=== PATIENT | female | born 1950 | race Caucasian/White ===

== ENCOUNTER → 2017-04-06 | Outpatient (CLI) | payer MEDICARE, OTHER ==
[~2017-04-06] MED LIST: OMEP20CA3 PO; VITA200016 PO; XALA0.007 OU
--- NOTE | 2017-04-06 17:59 | REP ---
Chest x-ray: Two views: History: Spur removal on foot. Comparison chest x-ray: 06/09/2005. Findings: The lungs are symmetrically aerated and free of infiltrate. The heart is near the upper range of normal with cardiothoracic ratio 13.2 cm over 27.7 cm. Pulmonary vasculature is not increased. Pleural angles are sharp. There are degenerative changes in the thoracic spine. No significant bony abnormality is seen. Impression: The heart is near the upper range of normal in size. Otherwise no acute disease seen. Signed by Ronen Overton MD 04/06/2017 07:39 P
[2017-04-06 18:05] LABS: CALCIUM LEVEL 8.6 MG/DL (8.8-10.2); CREATININE FOR GFR 1.13 MG/DL (0.55-1.02); GLOMERULAR FILTRATION RATE 51.4 (>45)
[2017-04-06 18:12] LABS: BASO % 0.5 % (0.0-1.0); EOS # 0.1 K/mm3 (0.0-0.50); EOS % 1.9 % (0.0-3.0); LARGE UNSTAINED CELL # 0.1 K/mm3 (0.0-0.4); LARGE UNSTAINED CELL % 1.4 % (0.0-4.0); LYMPH # 2.8 K/mm3 (1.5-4.5); LYMPH % 39.9 % (24.0-44.0); MEAN CORPUSCULAR HGB CONC 33.9 g/dl (32.0-36.5); MEAN CORPUSCULAR VOLUME 88.7 fl (80.0-96.0); MONO # 0.4 K/mm3 (0.0-0.8); MONO % 5.6 % (0.0-5.0); NEUTROPHILS # 3.4 K/mm3 (1.8-7.7); NEUTROPHILS % 50.6 % (36.0-66.0); PLATELET COUNT, AUTOMATED 227 k/mm3 (150-450); RED CELL DISTRIBUTION WIDTH 12.9 % (11.5-14.5); WHITE BLOOD COUNT 6.6 K/mm3 (4.0-10.0)
[2017-04-06 18:16] LABS: POTASSIUM SERUM 5.2 MEQ/L (3.5-5.1)
== END ==
LOC: M SMT 15:10
PROVIDERS: ATTEND Podiatrist
DX: Z01.818 Encounter for other preprocedural examination (principal); M25.7 Osteophyte

== ENCOUNTER 2017-04-12 06:00 | Day surgery (SDC) | payer MEDICARE, OTHER ==
[~2017-04-12] VITALS: Ht 162.6 cm; Wt 90.3 kg
[2017-04-12] MEDS ORDERED: LIDOCAINE 1% MDV 20ML VIAL SC ONE (06:30)
[2017-04-12] MEDS ORDERED: LR 1,000 ML IV ONE (06:30)
[2017-04-12] MEDS ORDERED: fentaNYL 100 MCG/2 ML INJECTION (J3010) As Ordered ONE (06:37)
[2017-04-12] MEDS ORDERED: KETAMINE HCL 200 MG/20 ML VIAL As Ordered ONE (06:37)
[2017-04-12] MEDS ORDERED: MIDAZOLAM INJ 2 MG/2 ML VIAL (J2250) As Ordered ONE (06:37)
[2017-04-12] MEDS ORDERED: ONDANSETRON 4MG/2ML VIAL (J2405) As Ordered ONE (06:38)
[2017-04-12] MEDS ORDERED: LIDOCAINE 2% INJ 100 MG/5 ML SDV (FOR ANES.) As Ordered ONE (06:38)
[2017-04-12] MEDS ORDERED: PROPOFOL 200 MG/20 ML VIAL As Ordered ONE (06:38)
[2017-04-12] MEDS ORDERED: dexameTHASONE 4 MG/ML 1ML VIAL (J1100) As Ordered ONE ×2 (06:38→07:06)
[2017-04-12] MEDS ORDERED: KETOROLAC 60 MG/2 ML VIAL (J1885) As Ordered ONE (06:38)
[2017-04-12] MEDS ORDERED: LIDOCAINE 2% MDV 20 ML VIAL As Ordered ONE (07:06)
[2017-04-12] MEDS ORDERED: ROPIvacaine 0.5% 30 ML INJECTION (J2795) As Ordered ONE (07:06)
[2017-04-12] MEDS ORDERED: NEOSPORIN GU IRRIG 20 ML VIAL As Ordered ONE (07:07)
[2017-04-12] MEDS ORDERED: BACITRACIN PWD 50,000 UNITS VIAL As Ordered ONE (07:07)
[2017-04-12] MEDS ORDERED: BUPIVACAINE HCL 0.5% 30 ML VIAL As Ordered ONE (07:07)
[2017-04-12 09:35] VITALS: BP 162/75
--- NOTE | 2017-04-12 09:57 | REP ---
LEFT FOOT SERIES: Three views. HISTORY: Postop. FINDINGS: Portably obtained three-view left foot series is presented. There is a bulky overlying dressing. Some subcutaneous emphysema is seen in the forefoot. There is a shave osteotomy performed in the distal end of the first metatarsal. No other abnormality. Signed by Ronen Overton MD 04/12/2017 01:58 P
--- NOTE | 2017-04-13 17:22 | RO ---
DATE OF PROCEDURE: 04/12/2017 PREOPERATIVE DIAGNOSIS: Hallux limitus deformity left foot and neuroma third interspace left foot. POSTPROCEDURE DIAGNOSIS: Hallux limitus deformity left foot and neuroma third interspace left foot. PROCEDURE: 1. Cheilectomy 1st metatarsal phalangeal joint left foot. 2. Excision of neuroma 3rd intermetatarsal space left foot. SURGEON: TAMI Whyte ASSISTANT: None. ANESTHESIA: Local monitored anesthesia care (MAC). IRRIGATION: Dilute bacitracin, neomycin and polymyxin B solution. HEMOSTASIS: Ankle pneumatic tourniquet. HARDWARE UTILIZED: None. DESCRIPTION OF OPERATION: On 04/12/2017 this 66-year-old white female was taken from her hospital room to the operating room and placed on the operating room table in supine position. Following the induction of IV sedation, local and regional anesthesia, the left lower extremity was prepped and draped in the usual aseptic manner. Attention was directed to the patient's left foot and the following procedure was performed: CHEILECTOMY 1ST METATARSAL PHALANGEAL JOINT LEFT FOOT: Attention was directed to the patient's left foot where there was noted to be a hallux limitus deformity. At this time a 5 cm incision was placed over the first metatarsal phalangeal joint medial to the extensor tendon. The incision was deepened through the subcutaneous tissue and coursing venous tributaries were identified, underscored, clamped, cut, ligated, and electrocoagulated as necessary. A linear capsulotomy was then performed in the same plane as the original skin incision. The capsular and periosteal structures were then dissected free in one continuous layer dorsally, medially and laterally, thus creating a capsular periosteal type envelope. This delivered into view the hypertrophied medial eminence of the 1st metatarsal, which was osteotomized from dorsal to proximal, through and through. Approximately the dorsal 30% of the articular cartilage was denuded in a small central lateral aspect measuring 4 mm. The dorsal area could be completely osteotomized and this was done with a power saw encompassing the dorsal 30%. A small remaining 3 mm x 4 mm defect was present. This was drilled with a Kristan wire to promote fibrocartilaginous ingrowth. The dorsal 20% of the cartilage was also denuded. This was then osteotomized with a sagittal saw from distal to proximal and this was extirpated from the wound. Utilizing a handheld rasp, the area was rasped to a smooth contour. The wound was flushed with copious amounts of dilute bacitracin, neomycin and polymyxin B solution. The capsular structures were coapted and maintained utilizing #2-0 Monocryl in a simple interrupted type fashion. Subcutaneous tissues were coapted and maintained using #4-0 Monocryl in a simple interrupted type fashion. The skin incision was coapted and maintained using #5-0 Monocryl in a continuous subcuticular type fashion. This was additionally reinforced with Steri-Strips. Attention was then directed into the 3rd intermetatarsal space where the following procedure was performed: EXCISION OF NEUROMA 3RD INTERMETATARSAL SPACE LEFT FOOT: Attention was directed in the 3rd interspace where a 3 cm incision was placed between the 3rd and 4th metatarsals ending at the toe sulcus. This was then deepened through the subcutaneous tissues and all coursing venous tributaries were identified, underscored, clamped, cut, ligated and electrocoagulated as necessary. Dissection was then carried down to the level of the deep tranverse intermetatarsal ligament which was transected. A large neuroma was visualized. This was traced into its common digital branches and transected distally and then traced in a proximal direction through the distal third of the 3rd metatarsal where the nerve was transected and the neuroma was removed. The wound was flushed with copious dilute bacitracin, neomycin and polymyxin B solution. Closure was then obtained with #4-0 Monocryl in a simple interrupted fashion in the subcutaneous level and the skin was coapted and maintained utilizing #5-0 Monocryl in a continuous subcuticular type fashion and this was additionally reinforced with Steri-Strips. Following the completion of the surgical procedure, 4 mg of dexamethasone sodium phosphate was instilled proximally into the surgical site. Attention was directed towards bandaging where a sterile compressive bandage was applied consisting of Adaptic, 4x4s, 4x4 splints, Arron, Kerlix, and Coban. The ankle pneumatic tourniquet was rapidly deflated and instantaneous capillary filling time was noted in digits 1-5 of the patient's left foot. The patient having apparently tolerated the surgical procedure well was taken from the OR to the recovery room with vital signs stable. Patient afebrile for further monitoring by the anesthesia department. Surgical specimens were sent to pathology for gross and microscopic examination.
== END 2017-04-12 10:01 | disposition home or self-care (01) ==
LOC: M SDC 06:00
PROVIDERS: ATTEND Podiatrist
DX: M20.22 Hallux rigidus, left foot (principal); G57.82 Other specified mononeuropathies of left lower limb; M79.672 Pain in left foot; M25.775 Osteophyte, left foot; K21.9 Gastro-esophageal reflux disease without esophagitis; H40.9 Unspecified glaucoma; M19.90 Unspecified osteoarthritis, unspecified site; Z79.899 Other long term (current) drug therapy
CPT/HCPCS: 28080; 28289; 73630; 88300; 88304; J0690; J1100; J1885; J2250; J2405; J3010

== ENCOUNTER → 2017-06-11 | Outpatient (CLI) | payer MEDICARE, OTHER ==
--- NOTE | 2017-06-11 09:35 | REP ---
RIGHT HAND SERIES: Four views. HISTORY: Pain in the right hand. FINDINGS: Four views right hand show overall normal mineralization. There are some mild osteoarthritic changes at the navicular multangular articulation as well as at the 1st MCP and 1st IP joints and some spurring is seen at the DIP joints of all four fingers. There is an old ununited chip fracture of the distal tuft of the ring finger. There is old post-traumatic deformity at the proximal phalanx of the small finger. IMPRESSION: Osteoarthritic changes. No acute bony abnormality. Signed by Ronen Overton MD 06/11/2017 12:58 P
[2017-06-11 12:03] LABS: BASO % 0.6 % (0.0-1.0); EOS # 0.1 10^3/uL (0.0-0.50); EOS % 2.5 % (0.0-3.0); IMMATURE GRANULOCYTE % 0.2 % (0-0); LYMPH # 2.1 10^3/uL (1.5-4.5); LYMPH % 40.3 % (24.0-44.0); MEAN CORPUSCULAR HEMOGLOBIN 29.6 pg (27.0-33.0); MEAN CORPUSCULAR HGB CONC 32.8 g/dl (32.0-36.5); MEAN CORPUSCULAR VOLUME 90.1 fl (80.0-96.0); MONO # 0.5 10^3/uL (0.0-0.8); MONO % 9.7 % (0.0-5.0); NEUTROPHILS # 2.5 10^3/uL (1.8-7.7); NEUTROPHILS % 46.7 % (36.0-66.0); PLATELET COUNT, AUTOMATED 261 10^3/uL (150-450); RED CELL DISTRIBUTION WIDTH 12.7 % (11.5-14.5); WHITE BLOOD COUNT 5.2 10^3/uL (4.0-10.0)
[2017-06-11 12:21] LABS: ALBUMIN 3.8 GM/DL (3.2-5.2); ALBUMIN/GLOBULIN RATIO 1.09 (1.00-1.93); BILIRUBIN,TOTAL 0.5 MG/DL (0.2-1.0); CALCIUM LEVEL 9.1 MG/DL (8.8-10.2); CREATININE FOR GFR 1.05 MG/DL (0.55-1.02); FREE T4 1.03 NG/DL (0.76-1.46); POTASSIUM SERUM 4.9 MEQ/L (3.5-5.1); TOTAL PROTEIN 7.3 GM/DL (6.4-8.2)
== END ==
LOC: M SMT 08:43
PROVIDERS: ATTEND Family Medicine
DX: K21.9 Gastro-esophageal reflux disease without esophagitis (principal); E78.00 Pure hypercholesterolemia, unspecified; R94.6 Abnormal results of thyroid function studies; E55.9 Vitamin D deficiency, unspecified; M25.541 Pain in joints of right hand

== ENCOUNTER → 2018-06-25 | Outpatient (CLI) | payer MEDICARE, OTHER ==
[2018-06-25 13:57] LABS: BASO % 0.8 % (0.0-1.0); EOS # 0.1 10^3/uL (0.0-0.50); EOS % 2.8 % (0.0-3.0); HEMATOCRIT 39.9 % (36.0-47.0); HEMOGLOBIN 12.9 g/dl (12.0-15.5); IMMATURE GRANULOCYTE % 0.2 % (0-3.0); LYMPH % 40.4 % (24.0-44.0); MEAN CORPUSCULAR HEMOGLOBIN 29.2 pg (27.0-33.0); MEAN CORPUSCULAR HGB CONC 32.3 g/dl (32.0-36.5); MEAN CORPUSCULAR VOLUME 90.3 fl (80.0-96.0); MONO # 0.5 10^3/uL (0.0-0.8); MONO % 9.1 % (0.0-5.0); NEUTROPHILS # 2.3 10^3/uL (1.8-7.7); NEUTROPHILS % 46.7 % (36.0-66.0); PLATELET COUNT, AUTOMATED 253 10^3/uL (150-450); RED BLOOD COUNT 4.42 10^6/uL (4.00-5.40); WHITE BLOOD COUNT 4.9 10^3/uL (4.0-10.0)
[2018-06-25 14:26] LABS: ALBUMIN 3.7 GM/DL (3.2-5.2); ALBUMIN/GLOBULIN RATIO 1.16 (1.00-1.93); ALKALINE PHOSPHATASE 76 U/L (45-117); ALT/SGPT 25 U/L (12-78); ANION GAP 7 MEQ/L (8-16); AST/SGOT 15 U/L (7-37); BILIRUBIN,TOTAL 0.4 MG/DL (0.2-1.0); BLOOD UREA NITROGEN 17 MG/DL (7-18); CALCIUM LEVEL 8.9 MG/DL (8.8-10.2); CARBON DIOXIDE LEVEL 30 MEQ/L (21-32); CHLORIDE LEVEL 107 MEQ/L (98-107); CHOLESTEROL LEVEL 192 MG/DL (<200); CHOLESTEROL RISK RATIO 3.764 (<5); CREATININE FOR GFR 1.03 MG/DL (0.55-1.30); GLOMERULAR FILTRATION RATE 57.1 (>45); GLUCOSE, FASTING 93 MG/DL (70-100); HDL CHOLESTEROL 51 MG/DL (>40); LDL CHOLESTEROL 116 MG/DL (<100); NON-HDL-C 141 MG/DL; POTASSIUM SERUM 5.1 MEQ/L (3.5-5.1); SODIUM LEVEL 144 MEQ/L (136-145); THYROID STIMULATING HORMONE 0.731 uIU/ML (0.358-3.740); TOTAL PROTEIN 6.9 GM/DL (6.4-8.2); TRIGLYCERIDES LEVEL 124 MG/DL (<150)
== END ==
LOC: M SMT 08:08
DX: K21.9 Gastro-esophageal reflux disease without esophagitis (principal); E78.00 Pure hypercholesterolemia, unspecified
CPT/HCPCS: 84443

== ENCOUNTER → 2018-07-16 | Outpatient (CLI) | payer MEDICARE, OTHER | LOC: M WUC 11:49 | DX: S80.11XA Contusion of right lower leg, initial encounter (principal); X58.XXXA Exposure to other specified factors, initial encounter; Y92.9 Unspecified place or not applicable; Y93.9 Activity, unspecified; Y99.9 Unspecified external cause status | CPT/HCPCS: 73590 ==

== ENCOUNTER → 2019-06-19 | Outpatient (CLI) | payer MEDICARE, OTHER ==
[~2019-06-19] MED LIST changes: -OMEP20CA3 PO; +OMEP20CA4 PO
[2019-06-19 13:33] LABS: ALBUMIN 3.4 GM/DL (3.2-5.2); BILIRUBIN,TOTAL 0.5 MG/DL (0.2-1.0); CALCIUM LEVEL 8.5 MG/DL (8.8-10.2); CHOLESTEROL RISK RATIO 3.634 (<5); CREATININE FOR GFR 1.14 MG/DL (0.55-1.30); GLOMERULAR FILTRATION RATE 50.6 (>45); POTASSIUM SERUM 4.2 MEQ/L (3.5-5.1); THYROID STIMULATING HORMONE 0.59 uIU/ML (0.358-3.740); TOTAL PROTEIN 6.8 GM/DL (6.4-8.2)
[2019-06-19 13:35] LABS: TOTAL 25(OH) VITAMIN D 26.1 NG/ML (30.0-100.0)
[2019-06-19 13:37] LABS: BASO % 0.7 % (0.0-1.0); EOS # 0.1 10^3/uL (0.0-0.5); EOS % 2.4 % (0.0-3.0); HEMATOCRIT 41.4 % (36.0-47.0); HEMOGLOBIN 13.2 g/dl (12.0-15.5); LYMPH # 1.7 10^3/uL (1.5-5.0); LYMPH % 40.3 % (24.0-44.0); MEAN CORPUSCULAR HEMOGLOBIN 29.2 pg (27.0-33.0); MEAN CORPUSCULAR HGB CONC 31.9 g/dl (32.0-36.5); MEAN CORPUSCULAR VOLUME 91.6 fl (80.0-96.0); MONO # 0.4 10^3/uL (0.0-0.8); MONO % 10.6 % (0.0-5.0); NEUTROPHILS # 1.9 10^3/uL (1.5-8.5); NEUTROPHILS % 45.8 % (36.0-66.0); PLATELET COUNT, AUTOMATED 249 10^3/uL (150-450); RED BLOOD COUNT 4.52 10^6/uL (4.00-5.40); WHITE BLOOD COUNT 4.1 10^3/uL (4.0-10.0)
[2019-06-21 00:11] LABS: Lyme Disease IgG/IgM Antibodie <0.91 ISR (0.00-0.90); Lyme Disease IgM Ab Quantitati <0.80 index (0.00-0.79)
== END ==
LOC: M SMT 09:26
PROVIDERS: ATTEND Family Medicine
DX: K21.9 Gastro-esophageal reflux disease without esophagitis (principal); E78.00 Pure hypercholesterolemia, unspecified; R53.83 Other fatigue; M25.50 Pain in unspecified joint

== ENCOUNTER 2021-01-10 03:42 | Emergency (ER) | payer MEDICARE, OTHER ==
[~2021-01-10] VITALS: Ht 162.6 cm; Wt 96.0 kg
[~2021-01-10 03:42] MED LIST changes: +OMEP1CAP73 PO; -OMEP20CA4 PO
[2021-01-10 04:53] LABS: BASO % 0.5 % (0.0-1.0); EOS % 0.3 % (0.0-3.0); HEMATOCRIT 38.3 % (36.0-47.0); HEMOGLOBIN 12.5 g/dl (12.0-15.5); LYMPH # 0.8 10^3/uL (1.5-5.0); LYMPH % 12.1 % (24.0-44.0); MEAN CORPUSCULAR HEMOGLOBIN 29.6 pg (27.0-33.0); MEAN CORPUSCULAR HGB CONC 32.6 g/dl (32.0-36.5); MEAN CORPUSCULAR VOLUME 90.5 fl (80.0-96.0); MONO # 0.2 10^3/uL (0.0-0.8); MONO % 3.5 % (2.0-8.0); NEUTROPHILS # 5.2 10^3/uL (1.5-8.5); NEUTROPHILS % 83.3 % (36.0-66.0); PLATELET COUNT, AUTOMATED 241 10^3/uL (150-450); RED BLOOD COUNT 4.23 10^6/uL (4.00-5.40); WHITE BLOOD COUNT 6.3 10^3/uL (4.0-10.0)
[2021-01-10 05:26] LABS: ALBUMIN 3.6 GM/DL (3.2-5.2); ALT/SGPT 23 U/L (12-78); BILIRUBIN,DIRECT 0.1 MG/DL (0.0-0.2); BILIRUBIN,TOTAL 0.4 MG/DL (0.2-1.0); BLOOD UREA NITROGEN 17 MG/DL (7-18); CALCIUM LEVEL 9.7 MG/DL (8.8-10.2); CARBON DIOXIDE LEVEL 26 MEQ/L (21-32); CHLORIDE LEVEL 109 MEQ/L (98-107); CK-MB VALUE MASS 1.5 NG/ML (<3.6); CPK CREATINE PHOSPHOKINASE 120 U/L (26-192); CREATININE FOR GFR 1.03 MG/DL (0.55-1.30); GLOMERULAR FILTRATION RATE 56.6 (>45); GLUCOSE, FASTING 136 MG/DL (70-100); LIPASE 84 U/L (73-393); MB/CK RELATIVE INDEX 1.25 (< OR =4); POTASSIUM SERUM 4.1 MEQ/L (3.5-5.1); SODIUM LEVEL 142 MEQ/L (136-145); TOTAL PROTEIN 7.2 GM/DL (6.4-8.2); TROPONIN I < 0.02 NG/ML (< 0.10)
[2021-01-10] MEDS ORDERED: FAMOTIDINE INJ 20MG/2ML VIAL (S0028 PER 1) IVP ONE (05:30)
[2021-01-10] MEDS ORDERED: ONDANSETRON 4MG/2ML VIAL IV ONE (05:30)
[2021-01-10] MEDS ORDERED: NS 1,000 ML IV ONE (05:30)
--- NOTE | 2021-01-10 06:12 | REPVR ---
PROCEDURE INFORMATION: Exam: XR Complete Acute Abdomen Series Exam date and time: 01/10/2021 5:15 AM Age: 70 years old Clinical indication: Abdominal pain; Acute TECHNIQUE: Imaging protocol: XR complete acute abdomen series, including 2 or more views of the abdomen and a single view chest. COMPARISON: CR CHEST 2 VIEWS 04/06/2017 3:21 PM FINDINGS: Lungs: No consolidation. A small area of subsegmental atelectasis is seen in the lateral left lower lobe, only. Pleural spaces: Normal. No pleural effusions. No pneumothorax. Heart/Mediastinum: Normal. No cardiomegaly. Gastrointestinal tract: Normal. No bowel dilation. Intraperitoneal space: Normal. No free air below the diaphragm on the upright radiograph. Bones/joints: Normal. No acute fracture. Soft tissues: Normal. IMPRESSION: No major acute findings. A small area of subsegmental atelectasis is seen in the lateral left lower lobe, only. Electronically signed by: Gaurav Ramey On 01/10/2021 06:12:31 AM
[2021-01-10 06:45] VITALS: BP 139/66
[2021-01-10] MEDS ORDERED: PEPC1TAB5 PO (06:52)
== END 2021-01-10 07:13 | disposition home or self-care (01) ==
LOC: M ED 03:42
DX: K29.00 Acute gastritis without bleeding (principal); J98.11 Atelectasis; K21.9 Gastro-esophageal reflux disease without esophagitis; Z79.899 Other long term (current) drug therapy
CPT/HCPCS: 74021; 80048; 80076; 81001; 82550; 82553; 83605; 83690; 84484; 85025; 87086; 96361; 96374; 96375; 99284; J2405

== ENCOUNTER → 2021-11-17 | Outpatient (CLI) | payer MEDICARE, OTHER ==
[~2021-11-17] MED LIST changes: +PEPC1TAB5 PO
[2021-11-17 12:46] LABS: BASO % 0.6 % (0.0-1.0); EOS # 0.1 10^3/uL (0.0-0.5); EOS % 2.7 % (0.0-3.0); HEMATOCRIT 38.8 % (36.0-47.0); HEMOGLOBIN 12.5 g/dl (12.0-15.5); LYMPH # 2.1 10^3/uL (1.5-5.0); LYMPH % 41.8 % (24.0-44.0); MEAN CORPUSCULAR HEMOGLOBIN 29.2 pg (27.0-33.0); MEAN CORPUSCULAR HGB CONC 32.2 g/dl (32.0-36.5); MEAN CORPUSCULAR VOLUME 90.7 fl (80.0-96.0); MONO # 0.5 10^3/uL (0.0-0.8); NEUTROPHILS # 2.3 10^3/uL (1.5-8.5); NEUTROPHILS % 44.7 % (36.0-66.0); PLATELET COUNT, AUTOMATED 244 10^3/uL (150-450); RED BLOOD COUNT 4.28 10^6/uL (4.00-5.40); WHITE BLOOD COUNT 5.1 10^3/uL (4.0-10.0)
[2021-11-17 13:57] LABS: ALBUMIN 3.5 GM/DL (3.2-5.2); BILIRUBIN,TOTAL 0.5 MG/DL (0.2-1.0); CALCIUM LEVEL 8.8 MG/DL (8.8-10.2); CHOLESTEROL RISK RATIO 3.327 (<5); CREATININE FOR GFR 1.08 MG/DL (0.55-1.30); FREE T4 0.98 NG/DL (0.76-1.46); GLOMERULAR FILTRATION RATE 53.4 (>39); POTASSIUM SERUM 4.6 MEQ/L (3.5-5.1); THYROID STIMULATING HORMONE 0.517 uIU/ML (0.358-3.740); TOTAL PROTEIN 6.9 GM/DL (6.4-8.2)
== END ==
LOC: M WUC 09:59
PROVIDERS: ATTEND Family Medicine
DX: K21.9 Gastro-esophageal reflux disease without esophagitis (principal); E78.00 Pure hypercholesterolemia, unspecified

== ENCOUNTER → 2022-08-25 | Outpatient (CLI) | payer MEDICARE, OTHER | LOC: M PLARAD 09:41 | PROVIDERS: ATTEND Podiatrist | DX: S96.012A Strain of muscle and tendon of long flexor muscle of toe at ankle and foot level, left foot, initial encounter (principal); M65.872 Other synovitis and tenosynovitis, left ankle and foot ==

== ENCOUNTER → 2024-09-22 | Outpatient (CLI) | payer MEDICARE, OTHER ==
[2024-09-22 11:38] LABS: BASO % 0.8 % (0.0-1.0); EOS # 0.1 10^3/uL (0.0-0.5); EOS % 2.4 % (0.0-3.0); HEMATOCRIT 39.6 % (36.0-47.0); HEMOGLOBIN 12.7 g/dl (12.0-15.5); LYMPH # 2.4 10^3/uL (1.5-5.0); LYMPH % 44.7 % (24.0-44.0); MEAN CORPUSCULAR HEMOGLOBIN 29.3 pg (27.0-33.0); MEAN CORPUSCULAR HGB CONC 32.1 g/dl (32.0-36.5); MEAN CORPUSCULAR VOLUME 91.2 fl (80.0-96.0); MONO # 0.5 10^3/uL (0.0-0.8); NEUTROPHILS # 2.3 10^3/uL (1.5-8.5); NEUTROPHILS % 42.9 % (36.0-66.0); PLATELET COUNT, AUTOMATED 250 10^3/uL (150-450); RED BLOOD COUNT 4.34 10^6/uL (4.00-5.40); WHITE BLOOD COUNT 5.3 10^3/uL (4.0-10.0)
[2024-09-22 11:56] LABS: ERYTHROCYTE SEDIMENTATION RATE 17 mm/hr (0-30)
[2024-09-22 12:11] LABS: THYROID STIMULATING HORMONE 0.557 uIU/ML (0.55-4.78); TOTAL 25(OH) VITAMIN D 28.9 NG/ML (20.0-100.0)
[2024-09-22 12:12] LABS: RHEUMATOID FACTOR QUANT 6.5 IU/ML (<14)
[2024-09-22 12:13] LABS: C REACTIVE PROTEIN QUANTITATIV < 0.50 MG/DL (<1.0); CHOLESTEROL LEVEL 195 MG/DL (<200); CHOLESTEROL RISK RATIO 3.63 (<5); HDL CHOLESTEROL 53.6 MG/DL (>40); NON-HDL-C 141.4 MG/DL; TRIGLYCERIDES LEVEL 147 MG/DL (<150)
[2024-09-22 12:14] LABS: FREE T4 1.25 NG/DL (0.89-1.76)
[2024-09-23 23:01] LABS: CYCLIC CITRULLINATED PEPTIDE < 16 UNITS (<20)
== END ==
LOC: M WUC 08:28
PROVIDERS: ATTEND Family Medicine
DX: M25.551 Pain in right hip (principal); E78.00 Pure hypercholesterolemia, unspecified; K21.9 Gastro-esophageal reflux disease without esophagitis